=== PATIENT | female | born 1990 | race African-American/Black ===

== ENCOUNTER 2019-12-16 20:48 | Emergency (ER) | payer MEDICAID ==
[~2019-12-16] VITALS: Ht 152.4 cm; Wt 54.4 kg
[2019-12-16 20:59] VITALS: BP 123/79
[2019-12-16] MEDS ORDERED: PENICILLIN G BENZ 1200000 UNITS/2 ML SYRG IM ONE (22:00)
== END 2019-12-16 22:19 | disposition home or self-care (01) ==
LOC: ER 20:49
DX: A53.9 Syphilis, unspecified (principal); Z20.2 Contact with and (suspected) exposure to infections with a predominantly sexual mode of transmission
CPT/HCPCS: 96372; 99283; J0561